=== PATIENT | male | born 1990 | race Caucasian/White ===

== ENCOUNTER 2024-08-28 07:47 | Day surgery (SDC) | payer BC ==
[~2024-08-28 07:47] MED LIST: Sodium Chloride 0.9% 10 ML Syringe FLUSH PRN
[2024-08-28] MEDS ORDERED: Propofol 200 MG/20 ML SDV IV ONE (07:48)
[2024-08-28] MEDS ORDERED: fentaNYL 100 MCG/2 ML SDV IV ONE (07:48)
[2024-08-28] MEDS ORDERED: Midazolam 1 MG/ML 2 ML SDV IV ONE (07:48)
[2024-08-28] MEDS: Lactated Ringers 1,000 ML IV SCH (08:11)
== END 2024-08-28 10:00 | disposition home or self-care (01) ==
LOC: FB.SDS 07:47
PROVIDERS: ATTEND Surgery
DX: K21.00 Gastro-esophageal reflux disease with esophagitis, without bleeding (principal); K29.50 Unspecified chronic gastritis without bleeding; Z88.0 Allergy status to penicillin; Z88.2 Allergy status to sulfonamides; Z88.1 Allergy status to other antibiotic agents; Z87.891 Personal history of nicotine dependence
CPT/HCPCS: 00731; 88305; 88342; J2250; J2704; J3010; J7120